=== PATIENT | female | born 1970 | race Caucasian/White ===

== ENCOUNTER 2024-05-06 05:37 | Emergency (ER) | payer MEDICARE, MEDICAID ==
[~2024-05-06] VITALS: Ht 160 cm; Wt 79.5 kg
[2024-05-06 06:23] LABS: BASOPHILS % (AUTO) 0.5 % (0-1); EOSINOPHILS # (AUTO) 0.1 X10'3 (0-0.9); EOSINOPHILS % (AUTO) 0.9 % (0-6); HEMATOCRIT 41.2 % (35.0-45.0); HEMOGLOBIN 13.8 g/dl (12.0-16.0); LYMPHOCYTES # (AUTO) 1.1 X10'3 (1.1-4.8); LYMPHOCYTES % (AUTO) 16.1 % (21-51); MEAN CORPUSCULAR HEMOGLOBIN 30.3 PG (27.0-31.0); MEAN CORPUSCULAR HGB CONC 33.5 g/dL (33.0-36.5); MEAN CORPUSCULAR VOLUME 90.3 FL (78-98); MEAN PLATELET VOLUME 9.4 FL (7.4-10.4); MONOCYTES # (AUTO) 0.8 X10'3 (0-0.9); MONOCYTES % (AUTO) 11.4 % (2-12); NEUTROPHILS # (AUTO) 4.8 X10'3 (1.8-7.7); NEUTROPHILS % (AUTO) 71.1 % (42-75); PLATELET COUNT 267 X10'3 (140-440); RED BLOOD COUNT 4.56 X10'6 (4.20-5.60); RED CELL DISTRIBUTION WIDTH 14.9 % (11.5-14.5); WHITE BLOOD COUNT 6.7 X10'3 (4.5-11.0)
[2024-05-06 06:38] LABS: PLATELET ESTIMATE NORMAL
[2024-05-06 06:39] LABS: ALBUMIN 3.7 G/DL (3.4-5.0); ANION GAP 12 (8-16); BLOOD UREA NITROGEN 15 MG/DL (7-18); BUN/CREATININE RATIO 14.7 (10.0-20.0); CALCIUM 8.9 MG/DL (8.5-10.1); CHLORIDE 101 MMOL/L (99-107); CREATININE 1.02 MG/DL (0.40-0.90); ETHANOL < 10 MG/DL (<10); GLUCOSE 92 MG/DL (70-104); LARGE PLATELETS FEW; POTASSIUM 3.4 MMOL/L (3.5-5.1); SODIUM 138 MMOL/L (135-145); THYROID STIMULATING HORMONE 39.49 ulU/ml (0.34-4.50); TOTAL CARBON DIOXIDE 25.5 MMOL/L (24-32); eCRCL 52 ML/MIN; eGFR 56 ML/MIN
[2024-05-06 06:41] LABS: GIANT PLATELET FEW
[2024-05-06 07:44] LABS: URINE HCG NEGATIVE (NEG)
[2024-05-06 07:45] LABS: BILIRUBIN,URINE NEGATIVE (Neg); CLARITY,URINE SLIGHTLY CLOUDY (Clear); COLOR,URINE YELLOW (Yellow); GLUCOSE, URINE NEGATIVE (Neg); KETONES,URINE NEGATIVE (Neg); LEUKOCYTE ESTERASE ,URINE SMALL (Neg); NITRITES, URINE NEGATIVE (Neg); OCCULT BLOOD,URINE TRACE-INTACT (Neg); PROTEIN,URINE NEGATIVE (Neg); UROBILINOGEN,URINE 0.2 E.U/dL (0.2-1.0)
[2024-05-06 07:56] LABS: UA COLLECTION TYPE NON-SPECIFIED
[2024-05-06 08:00] LABS: URINE AMPHETAMINE SCREEN NEGATIVE (Neg); URINE BARBITUATE SCREEN NEGATIVE (Neg); URINE BENZODIAZEPINES SCREEN NEGATIVE (Neg); URINE CANNABINOID SCREEN NEGATIVE (Neg); URINE COCAINE SCREEN NEGATIVE (Neg); URINE METHADONE SCREEN NEGATIVE (Neg); URINE OPIATE SCREEN NEGATIVE (Neg); URINE PHENCYCLIDINE SCREEN NEGATIVE (Neg)
[2024-05-06 08:06] LABS: SQUAMOUS EPITHELIAL CELL,UR MODERATE /LPF (FEW); TRANSITIONAL EPI CELLS,URINE MODERATE /HPF
[2024-05-06 08:08] LABS: RBC,URINE 0-2 /HPF (0-2)
[2024-05-06 08:14] LABS: CAL OXALATE CRYSTALS FEW /HPF (NEGATIVE)
[2024-05-06 08:20] LABS: BACTERIA,URINE 2+ /HPF (Neg)
[2024-05-06] MEDS ORDERED: OMEP20CA16 PO (10:28)
[2024-05-06] MEDS ORDERED: HYDR12.55 PO (10:28)
[2024-05-06] MEDS ORDERED: LEVO100T9 PO (10:28)
[2024-05-06] MEDS ORDERED: CELE-148 PO (10:28)
[2024-05-06] MEDS ORDERED: RISP-31 PO (10:28)
[2024-05-06] MEDS ORDERED: ATI1T PO (10:28)
[2024-05-06] MEDS ORDERED: FAMO20TA8 PO (10:28)
[2024-05-06] MEDS ORDERED: QUET100T34 PO (10:28)
[2024-05-06] MEDS ORDERED: LEVO125T PO (12:00)
[2024-05-06 12:01] LABS: FREE T4 (FREE THYROXINE) 0.76 NG/DL (0.73-1.40)
[2024-05-06] MEDS ORDERED: LORazepam 1 MG tablet PO PRN (12:05)
[2024-05-06] MEDS: levoTHYROXINE 125mcg tablet PO ONE (12:10)
[2024-05-06 17:45] VITALS: BP 108/70; PULSE 82; RESP 18; TEMP 97; O2SAT 100
[2024-05-06] MEDS ORDERED: famotidine 20mg tablet PO SCH (20:00)
[2024-05-06] MEDS ORDERED: risperiDONE 0.5mg tablet PO SCH (20:00)
[2024-05-06] MEDS ORDERED: quetiapine 100mg tablet PO SCH (21:00)
[2024-05-07] MEDS ORDERED: levoTHYROXINE 125mcg tablet PO SCH (08:00)
[2024-05-07] MEDS ORDERED: HYDROchlorothiazide 12.5mg capsule PO SCH (08:00)
== END 2024-05-06 17:25 ==
LOC: ER 05:39
DX: F31.9 Bipolar disorder, unspecified (principal); Z20.822 Contact with and (suspected) exposure to COVID-19; F20.9 Schizophrenia, unspecified; E03.9 Hypothyroidism, unspecified; R07.89 Other chest pain
CPT/HCPCS: 36415; 80048; 80305; 81001; 81025; 84439; 84443; 84480; 85008; 85025; 87811; 93005; 99285; G0480; 80320